=== PATIENT | male | born 1980 | race Caucasian/White ===

== ENCOUNTER 2022-08-02 23:43 | Emergency (ER) | payer SELFPAY ==
[2022-08-02] MEDS ORDERED: KETOROLAC TROMETHAMINE 60 MG/2 ML VIAL IM ONE (23:58)
[2022-08-02] MEDS ORDERED: CYCLOBENZAPRINE HCL 10 MG TABLET (FP) PO ONE (23:58)
[2022-08-03] VITALS: BP 127/86; PULSE 68; RESP 18; TEMP 98.2; BMI 24.3
[2022-08-03] MEDS ORDERED: KETOROLAC TROMETHAMINE 60 MG/2 ML VIAL ONE (00:02)
[2022-08-03] MEDS ORDERED: CYCLOBENZAPRINE HCL 5 MG TABLET ONE (00:02)
== END 2022-08-03 00:10 | disposition home or self-care (01) ==
LOC: FER 23:43
DX: R07.89 Other chest pain (principal); M25.511 Pain in right shoulder
CPT/HCPCS: 99283-25

== ENCOUNTER 2023-12-07 07:48 | Emergency (ER) | payer BC ==
[2023-12-07 07:57] VITALS: BP 111/77; PULSE 64; RESP 18; BMI 24.3
[2023-12-07] MEDS ORDERED: CYCLOBENZAPRINE HCL 10 MG TABLET (FP) ONE (09:04)
[2023-12-07] MEDS: CYCLOBENZAPRINE HCL 10 MG TABLET (FP) PO ONE (09:12)
[2023-12-07] MEDS ORDERED: ACETAMINOPHEN 500 MG TABLET (FP) ONE (09:27)
[2023-12-07] MEDS ORDERED: LIDOCAINE 4% PATCH TP ONE (09:27)
[2023-12-07] MEDS ORDERED: IBUPROFEN 400 MG TABLET (FP) PO ONE (09:27)
[2023-12-07] MEDS: IBUPROFEN 400 MG TABLET (FP) PO ONE (09:30)
[2023-12-07] MEDS: LIDOCAINE 4% PATCH TP ONE (09:30)
[2023-12-07] MEDS: ACETAMINOPHEN 500 MG TABLET (FP) PO ONE (09:30)
[2023-12-07] MEDS ORDERED: LIDOCAINE PATCH REMOVAL MC SCH (22:00)
== END 2023-12-07 09:37 | disposition home or self-care (01) ==
LOC: JERFT 07:48 → JER 07:48 → JERFT 09:37
DX: M54.2 Cervicalgia (principal); M62.830 Muscle spasm of back; M25.511 Pain in right shoulder
CPT/HCPCS: 99283-25